=== PATIENT | female | born 1960 | race African-American/Black ===

== ENCOUNTER → 2017-04-13 | Outpatient (CLI) | payer BC | LOC: RAD 01:48 | DX: Z12.31 Encounter for screening mammogram for malignant neoplasm of breast (principal) ==

== ENCOUNTER → 2018-04-12 | Outpatient (CLI) | payer BC | LOC: RAD 13:26 | DX: Z12.31 Encounter for screening mammogram for malignant neoplasm of breast (principal) ==

== ENCOUNTER → 2019-04-12 | Outpatient (CLI) | payer BC ==
[~2019-04-12] MED LIST: ATORVASTATIN CA20 MG PO; DEMADEX20 MG PO; GABAPENTIN 100100 MG PO; GLIMEPIRIDE4 MG PO; GLUCOPHAGE XR750 MG PO; LEVOTHYROXINE175 MCG PO; LOSARTAN-HCTZ1 EAC3 PO; TRULICITY0.75 MG/0. SUBQ
== END ==
LOC: RAD 02:32
DX: Z12.31 Encounter for screening mammogram for malignant neoplasm of breast (principal)

== ENCOUNTER → 2019-04-23 | Outpatient (CLI) | payer BC | LOC: ULTRA 02:47 | DX: N60.02 Solitary cyst of left breast (principal) ==

== ENCOUNTER 2019-05-04 03:13 | Emergency (ER) | payer BC ==
[~2019-05-04] VITALS: Ht 170.2 cm; Wt 99.3 kg
[2019-05-04] MEDS ORDERED: LEVOTHYROXINE175 MCG PO (03:24)
[2019-05-04] MEDS ORDERED: GLIMEPIRIDE4 MG PO (03:24)
[2019-05-04] MEDS ORDERED: DEMADEX20 MG PO (03:24)
[2019-05-04] MEDS ORDERED: ATORVASTATIN CA20 MG PO (03:24)
[2019-05-04] MEDS ORDERED: TRULICITY0.75 MG/0. SUBQ (03:24)
[2019-05-04] MEDS ORDERED: LOSARTAN-HCTZ1 EAC3 PO (03:25)
[2019-05-04] MEDS ORDERED: GLUCOPHAGE XR750 MG PO (03:25)
[2019-05-04] MEDS ORDERED: GABAPENTIN 100100 MG PO (04:24)
[2019-05-04 04:30] VITALS: BP 124/89
== END 2019-05-04 04:30 | disposition home or self-care (01) ==
LOC: ER 03:13
DX: M54.32 Sciatica, left side (principal); I10 Essential (primary) hypertension; E11.9 Type 2 diabetes mellitus without complications

== ENCOUNTER → 2019-07-09 | Outpatient (CLI) | payer BC, OTHER | LOC: MRI 11:30 | DX: M51.36 Other intervertebral disc degeneration, lumbar region (principal); M51.26 Other intervertebral disc displacement, lumbar region; M12.88 Other specific arthropathies, not elsewhere classified, other specified site; M48.061 Spinal stenosis, lumbar region without neurogenic claudication; M51.27 Other intervertebral disc displacement, lumbosacral region ==

== ENCOUNTER → 2019-07-19 | Outpatient (CLI) | payer OTHER, BC ==
[~2019-07-19] VITALS: Ht 170.2 cm; Wt 95.3 kg
[~2019-07-19] MED LIST changes: +ASPIR 8181 M1 PO; +NEURONTIN300 MG PO; +PREVACID30 MG PO
[2019-07-19 09:27] VITALS: BP 150/87
--- NOTE | 2019-07-19 09:31 | NUR ---
Pain Clinic Assessment: 1. History of Osteoarthritis: SPINE History of Rheumatoid Arthritis: NONE 2. Height: 5 ft. 7 in. 170.2 cm. Weight: 210.0 lb. oz. 95.256 kg. Patient's BMI: 32.9 3. Vital Signs: BP: 150/87 Pulse: 102 Resp: 15 Temp: 02 Sat: 98 ECG Mon: 4. Pain Intensity: 0 TODAY 8 YESTERDAy 5. Fall Risk: Dizziness: N Needs help standing or walking: N Fallen in the last 3 months: N Fall risk comments: 6. Patient on Blood Thinner: None 7. History of Hypertension: Y 8. Opioid Therapy greater than 6 weeks: N Opiate Contract Signed: 9. Risk Assessment Tool Provided: 10. Functional Assessment Tool: 11. Recreational Drug Use: Never Drug Type: Tobacco Use: Never Smoker Tobacco Type: Amount or Packs/day: How Many Years: Alcohol Use: No Frequency: Quant:
--- NOTE | 2019-08-29 13:51 | HPC ---
[facility] [address] [place] [address] PAIN MANAGEMENT CONSULTATION Name: SHAYNA GOULD Room #: REG [facility].#: [id number] Admission: 07/19/19 Attend Phys: Cherie Herzog MD Discharge: Date of : 64 Report #: [id number] THIS REPORT FOR: cc: Luis Dobbins MD,Luis Herzog,Cherie Mckinley MD ~ CC: Cherie Dobbins DATE OF SERVICE: 07/19/2019 CHIEF COMPLAINT: Bad pain in the left buttocks and down around into the thigh. HISTORY: The patient is a 59-year-old female who has been referred to the pain clinic for evaluation. She has been having pain and discomfort since about 04/2019. Describes pain in the lower portion of her back that radiates down to the left buttocks and down into her thigh. Notes that the pain is worse with certain activities. When it was present. She describes it as continuous, steady, constant, shooting, aching, crushing, throbbing, pounding, sharp, and stabbing. At its worse, it was an 8. Today, she rates the pain as 0. It is improved. Denies any trauma. She has not had back surgery. ALLERGIES: No known drug allergies. CURRENT MEDICATIONS: Trulicity 0.7 mg subcutaneous weekly, Prevacid 30 mg, aspirin 81 mg, metformin 750 mg b.i.d., losartan/hydrochlorothiazide 100/25, Lipitor 20 mg, Demadex 20 mg, and levothyroxine 175 mcg. PAST SURGICAL HISTORY: Tubal ligation in 1983, hysterectomy 2000, thyroidectomy 2000 x 2, cholecystectomy 2008, oophorectomy 2011, and hernia repair 2011. 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 She is working. REVIEW OF SYSTEMS: Decreased appetite, wears glasses, blurred vision, loss of appetite, insomnia, thyroid disease, diabetes. LABORATORY DATA: 1. MRI of the lumbar spine dated 07/09/2019. 2. L3-L4, mild degenerative disk disease. Mild arthropathy bilaterally. Mild broad-based disk bulge. No spinal stenosis or neural foraminal narrowing. 3. L3-L4, L4-L5, mild degenerative disk disease. Moderate facet arthropathy bilaterally. Mild broad-based disk bulge. No spinal stenosis. Mild right and left neural foraminal narrowing. 4. L5-S1, mild degenerative disk disease. Moderate to severe facet arthropathy bilaterally. Mild broad-based disk bulge with mild right paracentral disk [address] [address] PAIN MANAGEMENT CONSULTATION Name: SHAYNA GOULD Room #: REG [facility].#: [id number] Admission: 07/19/19 Attend Phys: Cherie Herzog MD Discharge: Date of : 64 Report #: [id number] protrusion. No spinal stenosis. Moderate narrowing of the right lateral recess without nerve compression. No neural foraminal narrowing. PAIN CLINIC ASSESSMENT AND PQRS: 1. History of spinal osteoarthritis. 2. The patient is not being treated for rheumatoid arthritis. 3. Height 5 feet 7 inches, weight 210 pounds, BMI 32.9. 4. Blood pressure 150/87, pulse 102, respiratory rate 15, room air saturation 98%. 5. Pain intensity 0 today. Yesterday was 8/10. 6. Fall history: The patient has not fallen in the last 3 months. 7. Blood thinner. The patient is not on a blood thinning medication. 8. Hypertension. The patient is being treated for hypertension. 9. Opioids greater than 6 weeks. The patient receives medication from one source. 10. Risk assessment tool, low for opioid use. 11. Functional assessment tool reviewed. 12. Recreational drug use: The patient denies. 13. Tobacco: The patient has never smoked. 14. Alcohol: The patient denies frequent use of alcoholic beverages. PHYSICAL EXAMINATION: GENERAL: The patient is a well-developed, well-nourished female. Appears her stated age. She is alert and oriented x 3. Her affect is appropriate. Speech is fluent. HEENT: Normocephalic, atraumatic. Extraocular eye muscles intact. Sclerae nonicteric. Mucous membranes are moist. NECK: Without adenopathy or JVD. HEART: Regular rate. ABDOMEN: Nontender. EXTREMITIES: Upper extremity muscle strength judged to be 5/5 for the major muscle groups of the upper extremities. Deep tendon reflexes are +1 at the biceps. The patient's anterior and posterior spring tests are negative. Straight leg raise today is negative. The patient does have some slight soreness in the left sciatic area. The patient is able to stand on her toes and heels. Forward bending caused some increased low back pain and discomfort down in the left buttocks area. IMPRESSION: 1. History of chronic left sided low back pain with sciatica, improved today. RECOMMENDATIONS: We discussed treatment options with the patient. At this juncture, we will continue with a conservative approach. The patient will be provided a gabapentin. She will try this medication and note its efficacy. Should her pain continues to be problematic, she will return, at which time we [address] [address] PAIN MANAGEMENT CONSULTATION Name: SHAYNA GOULD Room #: REG [facility]#: [id number] Admission: 07/19/19 Attend Phys: Cherie Herzog MD Discharge: Date of : 64 Report #: [id number] would then consider an epidural steroid injection for lumbar radiculopathy. She is having pain in approximately the L2-L3 dermatomal distribution. We would like to thank you for letting us participate in her care. <ELECTRONICALLY SIGNED> By: Cherie Herzog MD 08/29/19 [id number] Cherie Herzog MD /nt
== END ==
LOC: PAIN 06:46
DX: M51.37 Other intervertebral disc degeneration, lumbosacral region (principal); M51.26 Other intervertebral disc displacement, lumbar region; M79.652 Pain in left thigh; M48.07 Spinal stenosis, lumbosacral region

== ENCOUNTER → 2019-08-16 | Outpatient (CLI) | payer OTHER, BC ==
[~2019-08-16] VITALS: Ht 170.2 cm; Wt 95.7 kg
[2019-08-16 08:14] VITALS: BP 143/86
--- NOTE | 2019-08-16 08:19 | NUR ---
Pain Clinic Assessment: 1. History of Osteoarthritis: SPINE History of Rheumatoid Arthritis: NONE 2. Height: 5 ft. 7 in. 170.2 cm. Weight: 211.0 lb. oz. 95.709 kg. Patient's BMI: 33.0 3. Vital Signs: BP: 143/86 Pulse: 96 Resp: 14 Temp: 02 Sat: 97 ECG Mon: 4. Pain Intensity: 0 5. Fall Risk: Dizziness: N Needs help standing or walking: N Fallen in the last 3 months: N Fall risk comments: 6. Patient on Blood Thinner: None 7. History of Hypertension: Y 8. Opioid Therapy greater than 6 weeks: N Opiate Contract Signed: 9. Risk Assessment Tool Provided: 10. Functional Assessment Tool: 11. Recreational Drug Use: Never Drug Type: Tobacco Use: Never Smoker Tobacco Type: Amount or Packs/day: How Many Years: Alcohol Use: No Frequency: Quant:
--- NOTE | 2019-08-30 09:29 | HPC ---
[facility] [place] [address] PAIN MANAGEMENT CONSULTATION Name: SHAYNA GOULD Room #: REG [facility].#: [id number] Admission: 08/16/19 Attend Phys: Cherie Herzog MD Discharge: Date of : 64 Report #: [id number] THIS REPORT FOR: cc: Luis Dobbins MD,Luis Herzog,Cherie Mckinley MD ~ CC: Cherie Dobbins DATE OF SERVICE: 08/16/2019 CHIEF COMPLAINT: The pain has improved greatly. HISTORY: The patient is a 59-year-old female who has been referred to the pain clinic for evaluation. She was complaining of pain and discomfort in her left thigh. This radiated down to the area of her knee. Pain had been problematic since 04/2019. Denies any trauma. She was experiencing steady, constant, shooting, aching, crushing, throbbing, and sharp pain. The patient was given gabapentin 300 mg 3 times daily. At this point, she returns and indicates that her pain is 0. She is having less pain and discomfort. She has not had any complications or side effects from the gabapentin medication. She feels that this is working reasonably well and would like to continue it. ALLERGIES: No known drug allergies. CURRENT MEDICATIONS: Trulicity 0.7 mg subcutaneous q. weekly, Prevacid 30 mg, aspirin 81 mg, metformin 750 mg b.i.d., losartan/hydrochlorothiazide 100/25, Lipitor 20 mg, Demadex 200 mg, levothyroxine 175 mcg, recent start of gabapentin 300 mg t.i.d. PAIN CLINIC ASSESSMENT AND PQRS: 1. Osteoarthritis. The patient complains of some osteoarthritis in her spine. She is not being treated for rheumatoid arthritis. 2. Height 5 feet 7 inches, weight 211 pounds, BMI 33. 3. Vital Signs: Blood pressure 143/86, pulse 96, respiratory rate 14, room air saturation 97%. 4. Pain intensity 0/10. 5. Fall history: The patient has not fallen. 6. Blood thinner. The patient is not on a blood thinning medication. 7. Hypertension. The patient is being treated for hypertension. 8. Opioids greater than 6 weeks. The patient is not on an opioid regimen. 9. Risk assessment tool, low for opioid use. 10. Functional assessment tool reviewed. 11. Recreational drug use: The patient denies. 12. Tobacco: The patient has never smoked. 13. Alcohol: The patient [place] [address] PAIN MANAGEMENT CONSULTATION Name: SHAYNA GOULD Room #: REG [facility]#: [id number] Admission: 08/16/19 Attend Phys: Cherie Herzog MD Discharge: Date of : 64 Report #: [id number] PHYSICAL EXAMINATION: GENERAL: The patient is a well-developed, well-nourished black female, appears her stated age. She is alert and oriented x 3. Her affect is appropriate. Speech is fluent. HEENT: Normocephalic, atraumatic. Extraocular eye muscles intact. Sclerae nonicteric. Mucous membranes are moist. NECK: Without adenopathy or JVD. HEART: Regular rate. ABDOMEN: Nontender. EXTREMITIES: Upper extremity muscle strength judged to be 5/5 for the major muscle groups in the upper extremity. Lower extremity muscle strength judged to be 5/5 for the major muscle groups in the lower extremity. The patient has noted resolution of the pain in the L2-L3 area, which radiated into the left thigh and above the knee at L2-L3. IMPRESSION: 1. History of chronic left sided pain at L2-L3 on the left side. 2. Diabetes. 3. Hypertension. RECOMMENDATIONS: We discussed treatment options with the patient. At this point, she feels that the gabapentin medication has been efficacious. We had talked to her in regards to the benefits of gabapentin in patients with diabetes for peripheral neuropathy. She feels that the pain in her thigh has improved. She has had no complications. She would like to continue with the medication. She will continue with gabapentin 300 mg 1 p.o. t.i.d. A script for 4 months of medication has been provided. The patient can follow up with her primary physician or she could continue to follow up again in the pain clinic in the future for renewal of her medication. We would like to thank you for letting us participate in her care. We hope she continues to improve. <ELECTRONICALLY SIGNED> By: Cherie Herzog MD 08/30/19 [id number] Cherie Herzog MD /nt
== END ==
LOC: PAIN 06:46
DX: M79.652 Pain in left thigh (principal); M54.5 Low back pain; E11.9 Type 2 diabetes mellitus without complications; I10 Essential (primary) hypertension; Z79.82 Long term (current) use of aspirin; Z79.811 Long term (current) use of aromatase inhibitors; Z79.899 Other long term (current) drug therapy

== ENCOUNTER → 2020-04-14 | Outpatient (CLI) | payer OTHER, BC | LOC: BC 10:32 | PROVIDERS: ATTEND Family Medicine | DX: Z12.31 Encounter for screening mammogram for malignant neoplasm of breast (principal) ==

== ENCOUNTER → 2020-12-04 | Outpatient (CLI) | payer BC | LOC: RAD 14:11 | PROVIDERS: ATTEND Nurse Practitioner | DX: N64.4 Mastodynia (principal) ==